=== PATIENT | female | born 1975 | race African-American/Black ===

== ENCOUNTER 2019-04-11 15:34 | Emergency (ER) | payer MEDICAID ==
[~2019-04-11] VITALS: Ht 170.2 cm; Wt 88.0 kg
[2019-04-11] MEDS ORDERED: NAPR500T7 PO (15:52)
[2019-04-11] MEDS ORDERED: LEVO175T7 PO (15:52)
[2019-04-11] MEDS ORDERED: KETOROLAC 60MG/2ML VIAL IM STA (18:28)
[2019-04-11 19:59] LABS: CLARITY URINE CLEAR (CLEAR); COLOR URINE YELLOW (YELLOW); KETONES URINE NEGATIVE (NEGATIVE); LEUKOCYTE ESTERASE URINE NEGATIVE (NEGATIVE); NITRITE URINE NEGATIVE (NEGATIVE); OCCULT BLOOD URINE NEGATIVE (NEGATIVE); PH URINE 6.5 (4.5-8.0); PROTEIN URINE NEGATIVE (NEGATIVE); SPECIFIC GRAVITY URINE 1.015 (1.005-1.030); UROBILINOGEN URINE 0.2 E.U./dL (0.2-1.0)
[2019-04-11 20:15] VITALS: BP 135/75
== END 2019-04-11 20:15 | disposition home or self-care (01) ==
LOC: ER 17:16
DX: M54.42 Lumbago with sciatica, left side (principal)
CPT/HCPCS: 81003; 81025; 96372; 99283; J1885

== ENCOUNTER 2019-07-09 10:31 | Emergency (ER) | payer MEDICAID ==
[~2019-07-09] VITALS: Ht 175.3 cm; Wt 82.0 kg
[~2019-07-09 10:31] MED LIST: LEVO175T7 PO; NAPR500T7 PO
[2019-07-09] MEDS ORDERED: KETOROLAC 30MG/ML VIAL IM ONE (13:00)
[2019-07-09] MEDS ORDERED: METHYLPREDNISOLONE SOD SUCC 125 MG/2 ML VIAL IM ONE (13:00)
[2019-07-09 13:16] VITALS: BP 122/81
== END 2019-07-09 14:33 | disposition home or self-care (01) ==
LOC: ER 10:42
DX: M54.42 Lumbago with sciatica, left side (principal); R03.0 Elevated blood-pressure reading, without diagnosis of hypertension
CPT/HCPCS: 96372; 99283; J1885; J2930